=== PATIENT | female | born 1980 | race Caucasian/White ===

== ENCOUNTER 2023-10-06 16:46 | Emergency (ER) | payer OTHER ==
[~2023-10-06] VITALS: Ht 165.1 cm; Wt 68.2 kg
[2023-10-06 16:48] VITALS: TEMP 98.2
[2023-10-06] MEDS ORDERED: MULT9LIQ7 PO (17:00)
[2023-10-06 17:58] LABS: BASOPHILS % (AUTO) 0.6 % (0.0-2.0); EOSINOPHILS % (AUTO) 1.8 % (1.0-6.0); HEMATOCRIT 38.3 % (36-46); HEMOGLOBIN 12.6 g/dL (12.0-16.0); LYMPHOCYTES # (AUTO) 2.3 K/uL (1.0-4.8); MEAN CORPUSCULAR HEMOGLOBIN 31.3 pg (26.0-34.0); MEAN CORPUSCULAR HGB CONC 32.8 G/dL (31.0-37.0); MEAN CORPUSCULAR VOLUME 96 fL (80-100); MONOCYTES # (AUTO) 0.4 K/uL (0.1-1.0); MONOCYTES % (AUTO) 6.2 % (2.0-9.0); NEUTROPHILS # (AUTO) 3.8 K/uL (1.8-7.7); NEUTROPHILS % (AUTO) 57.4 % (40.0-70.0); PLATELET COUNT (AUTO) 286 K/uL (150-450); RED BLOOD CELL COUNT(AUTO) 4.01 MIL/uL (4.00-5.20); RED CELL DISTRIBUTION WIDTH 14.1 % (11.5-14.5); WHITE BLOOD COUNT (AUTO) 6.6 K/uL (4.5-11.0)
[2023-10-06 18:08] LABS: ANION GAP 9 mmol/L (8-16); CALCIUM, TOTAL 8.6 mg/dL (8.8-10.5); CARBON DIOXIDE 28 mmol/L (22-29); CHLORIDE 101 mmol/L (98-107); CREATININE 0.74 mg/dL (0.60-1.30); GLOMERULAR FILTR. RATE CALC > 60 mL/min (>60); GLUCOSE,RANDOM 90 mg/dL (70-110); SODIUM SERUM 138 mmol/L (136-145); UREA NITROGEN, BLOOD 12 mg/dL (7-18)
[2023-10-06 18:32] LABS: AMYLASE 53 U/L (25-115); CREATINE KINASE, TOTAL ONLY 84 U/L (26-192); HCG,QUANTITATIVE < 1 mIU/mL (0-6); LIPASE 47 U/L (16-77)
[2023-10-06] MEDS: ACETAMINOPHEN 500 MG TABLET PO ONE (18:36)
[2023-10-06] MEDS: ONDANSETRON HCL 4 MG TABLET PO ONE (18:36)
[2023-10-06] MEDS ORDERED: ACET-66 PO (18:58)
[2023-10-06] MEDS ORDERED: ONDA-104 PO (18:58)
[2023-10-06 19:00] VITALS: BP 119/74; PULSE 63; RESP 17
== END 2023-10-06 19:19 | disposition home or self-care (01) ==
LOC: EMS 16:46
DX: A05.9 Bacterial foodborne intoxication, unspecified (principal); E73.9 Lactose intolerance, unspecified
CPT/HCPCS: 99283; 80048; 82150; 82550; 83690; 84702; 85025; 36415; Q0162